=== PATIENT | male | born 2000 | race Caucasian/White ===

== ENCOUNTER 2020-09-27 20:56 | Emergency (ER) | payer MEDICAID ==
[~2020-09-27] VITALS: Ht 121.9 cm; Wt 59.5 kg
[2020-09-27] MEDS ORDERED: PERTUSS(ACELL),DIPH,TET VAC/PF 0.5 ML VIAL IM ONE (23:15)
[2020-09-27] MEDS ORDERED: TraMADol HCL 50 MG TABLET PO ONE (23:15)
[2020-09-27] MEDS ORDERED: SODIUM CHLORIDE 0.9% 250 ML IRRIG SOLUTION BOTTLE IRRIG ONE (23:15)
[2020-09-28 00:05] VITALS: BP 117/69
== END 2020-09-28 00:40 | disposition home or self-care (01) ==
LOC: EMS 20:56
DX: S71.111A Laceration without foreign body, right thigh, initial encounter (principal); W26.0XXA Contact with knife, initial encounter; Y93.89 Activity, other specified; Y92.89 Other specified places as the place of occurrence of the external cause; Y99.8 Other external cause status
CPT/HCPCS: 73552; 90471; 90715; 96372; 99284; J0690